=== PATIENT | female | born 1960 | race Caucasian/White ===

== ENCOUNTER 2024-10-31 18:58 | Inpatient (IN) | payer OTHER ==
[2024-10-31 20:19] LABS: Basophils # (A) 0.01 10*3/uL (0.00-0.10); Basophils % (A) 0.2 %; Eosinophils # (A) 0.02 10*3/uL (0.04-0.35); Eosinophils % (A) 0.4 %; HCT 34.2 % (37.2-46.3); HGB 12.5 g/dL (12.0-15.0); Lymphocytes # (A) 1.07 10*3/uL (0.90-5.00); Lymphocytes % (A) 20.9 %; MCH 31.0 pg (27.0-32.0); MCHC 36.5 g/dL (32.0-37.0); MCV 84.9 fL (80.0-97.0); Monocytes # (A) 0.61 10*3/uL (0.20-1.00); Monocytes % (A) 11.9 %; Neutrophils # (A) 3.39 10*3/uL (1.80-7.70); Neutrophils % (A) 66.4 %; Platelet Count 264 10*3/uL (140-440); RBC 4.03 10*6/uL (4.10-5.20); RDW 12.6 % (11.5-14.5); WBC 5.11 10*3/uL (4.50-10.00)
[2024-10-31 20:33] LABS: African American GFR (CKD) >90 (>60 ml/min/1.73 sqM); Albumin 4.8 g/dL (3.5-5.0); Anion Gap 12 mmol/L; Blood Urea Nitrogen 5 mg/dL (7-17); Calcium 9.1 mg/dL (8.4-10.2); Carbon Dioxide 20 mmol/L (22-30); Chloride 85 mmol/L (98-107); Glucose 86 mg/dL (74-99); Non-African American GFR(CKD) >90 (>60 ml/min/1.73 sqM); Total Protein 7.3 g/dL (6.3-8.2)
[2024-10-31 20:46] LABS: Potassium 3.9 mmol/L (3.5-5.1); Sodium 117 mmol/L (137-145)
[2024-10-31 20:47] LABS: ALT 37 U/L (4-34); AST 39 U/L (14-36); Alkaline Phosphatase 57 U/L (38-126)
[2024-10-31] MEDS ORDERED: NALOXONE 0.4 MG/ML 1 ML VIAL IV PRN (21:23)
--- NOTE | 2024-10-31 21:25 | ED ---
Recheck HPI - General Chief Complaint: Recheck/Abnormal Lab/Rx Stated Complaint: Low sodium Time Seen by Provider: 10/31/24 19:31 Source: patient Mode of arrival: ambulatory Limitations: no limitations - History of Present Illness Initial Comments: 64-year-old female presenting with concerns for low sodium. Patient reports that she was recently released from [facility]. She was admitted there for hyponatremia, states that she was told it was likely due to her Lasix. She reports that during her follow-up appointments throughout the week she has noticed a steadily declining sodium, yesterday her sodium was 120. She is feeling some mild weakness today but no other symptoms. She came in to get her sodium rechecked. She was sent home on ure-Na 30 mg twice daily. However she reports that her insurance does not cover this and she is unable to afford the prescribed dose so she has been taking smaller doses to stretch it out. Denies chest pain, difficulty breathing, vomiting, diarrhea, dizziness, headache. - Related Data Allergies Allergy/AdvReac Type Severity Reaction Status Date / Time No Known Allergies Allergy Verified 10/31/24 19:12 Review of Systems ROS Statement: Those systems with pertinent positive or pertinent negative responses have been documented in the HPI. ROS Other: All systems not noted in ROS Statement are negative. Past Medical History Past Medical History: Heart Failure, Hyperlipidemia, Pneumonia Additional Past Medical History / Comment(s): hyponatremia, fluid overload Past Surgical History: No Surgical Hx Reported Smoking Status: Current every day smoker Past Alcohol Use History: Daily Past Drug Use History: None Reported General Exam Limitations: no limitations General appearance: alert, in no apparent distress Head exam: Present: atraumatic, normocephalic, normal inspection Eye exam: Present: normal appearance, EOMI Neck exam: Present: normal inspection. Absent: meningismus Respiratory exam: Present: normal lung sounds bilaterally. Absent: respiratory distress, wheezes, rales, rhonchi, stridor Cardiovascular Exam: Present: regular rate, normal rhythm, normal heart sounds. Absent: systolic murmur, diastolic murmur, rubs, gallop, clicks Neurological exam: Present: alert, oriented X3 Psychiatric exam: Present: normal affect, normal mood Skin exam: Present: warm, dry, normal color Course Vital Signs 10/31/24 10/31/24 10/31/24 19:07 20:30 22:30 Temperature 98.3 F Pulse Rate 80 88 90 Respiratory 18 18 18 Rate Blood Pressure 177/73 153/70 123/57 O2 Sat by Pulse 97 99 99 Oximetry Medical Decision Making - Medical Decision Making Was pt. sent in by a medical professional or institution (YESIKA Corona, FIRE OFFICER, urgent care, hospital, or [facility]...) When possible be specific @ -No Did you speak to anyone other than the patient for history (EMS, parent, family, police, friend...)? What history was obtained from this source @ -No Did you review nursing and triage notes (agree or disagree)? Why? @ -I reviewed and agree with nursing and triage notes Were old charts reviewed (outside hosp., previous admission, EMS record, old EKG, old radiological studies, urgent care reports/EKG's, [facility] records)? Report findings @ -No old charts were reviewed Differential Diagnosis (chest pain, altered mental status, abdominal pain women, abdominal pain men, vaginal bleeding, weakness, fever, dyspnea, syncope, he adache, dizziness, GI bleed, back pain, seizure, CVA, palpatations, mental health, musculoskeletal)? @ -MDM Differential Weakness: Hypoglycemia, shock, sepsis, hyponatremia, anemia, infection, VT, ETOH, adverse medicine reaction, overdose, stroke. ... This is not meant to be an all- inclusive list EKG interpreted by me (3pts min.). @ -As above X-rays interpreted by me (1pt min.). @ -None done CT interpreted by me (1pt min.). @ -None done U/S interpreted by me (1pt. min.). @ -None done What testing was considered but not performed or refused? (CT, X-rays, U/S, labs)? Why? @ -None What meds were considered but not given or refused? Why? @ -None Did you discuss the management of the patient with other professionals (professionals i.e. YESIKA Corona, FIRE OFFICER, lab, RT, psych nurse, rn social work, multiple coil winder, teacher, transportation officer, case therapist)? Give summary @ -Spoke with Seu from [facility] who accepts admission Was smoking cessation discussed for >3mins.? @ -No Was critical care preformed (if so, how long)? @ -No Were there social determinants of health that impacted care today? How? (Homeles sness, low income, unemployed, alcoholism, drug addiction, transportation, low edu. Level, literacy, decrease access to med. care, prison, rehab)? @ -No Was there de-escalation of care discussed even if they declined (Discuss DNR or withdrawal of care, Hospice)? DNR status @ -No What co-morbidities impacted this encounter? (DM, HTN, Smoking, COPD, CAD, Cancer, CVA, ARF, Chemo, Hep., AIDS, mental health diagnosis, sleep apnea, morbid obesity)? @ -None Was patient admitted / discharged? Hospital course, mention meds given and route, prescriptions, significant lab abnormalities, going to OR and other pertinent info. @ -64-year-old female presenting with concerns for low sodium. Recently disc harged from [place] after admission for hyponatremia. At her follow-up appointment throughout the week it has been progressively lowering. She has not been able to take her medication as prescribed due to her her insurance not covering it. Mild weakness today. Sodium is 117. Vital signs stable. GFR is greater than 90 BUN 5 creatinine 0.37. Patient is given normal saline. She will be admitted. Nephrology is consulted. I discussed this case with my attending Dr. Farnsworth Undiagnosed new problem with uncertain prognosis? @ -No Drug Therapy requiring intensive monitoring for toxicity (Heparin, Nitro, Insulin, Cardizem)? @ -No Were any procedures done? @ -No Diagnosis/symptom? @ -Hyponatremia Acute, or Chronic, or Acute on Chronic? @ -Acute Uncomplicated (without systemic symptoms) or Complicated (systemic symptoms)? @ -Complicated Side effects of treatment? @ -No Exacerbation, Progression, or Severe Exacerbation? @ -No Poses a threat to life or bodily function? How? (Chest pain, USA, VT, pneumonia, PE, COPD, DKA, ARF, appy, cholecystitis, CVA, Diverticulitis, Homicidal, Suicidal, threat to staff... and all critical care pts) @ -Yes - Lab Data Result diagrams: 10/31/24 20:08 11/01/24 00:16 Lab Results 10/31/24 10/31/24 Range/Units 20:08 20:08 WBC 5.11 (4.50-10.00) 10*3/uL RBC 4.03 L (4.10-5.20) 10*6/uL Hgb 12.5 (12.0-15.0) g/dL Hct 34.2 L (37.2-46.3) % MCV 84.9 (80.0-97.0) fL MCH 31.0 (27.0-32.0) pg MCHC 36.5 (32.0-37.0) g/dL Plt Count 264 (140-440) 10*3/uL MPV 8.8 L (9.5-12.2) fL Immature Gran % (Auto) 0.2 % Neutrophils % 66.4 % Lymphocytes % 20.9 % Monocytes % 11.9 % Eosinophils % 0.4 % Basophils % 0.2 % Immature Gran # 0.01 (0.00-0.04) 10*3/uL Neutrophils # 3.39 (1.80-7.70) 10*3/uL Lymphocytes # 1.07 (0.90-5.00) 10*3/uL Monocytes # 0.61 (0.20-1.00) 10*3/uL Eosinophils # 0.02 L (0.04-0.35) 10*3/uL Basophils # 0.01 (0.00-0.10) 10*3/uL Sodium 117 L* (137-145) mmol/L Potassium 3.9 (3.5-5.1) mmol/L Chloride 85 L (98-107) mmol/L Carbon Dioxide 20 L (22-30) mmol/L Anion Gap 12 mmol/L BUN 5 L (7-17) mg/dL Creatinine 0.37 L (0.52-1.04) mg/dL Est GFR (CKD-EPI)AfAm >90 (>60 ml/min/1.73 sqM) Est GFR (CKD-EPI)NonAf >90 (>60 ml/min/1.73 sqM) Glucose 86 (74-99) mg/dL Calcium 9.1 (8.4-10.2) mg/dL Total Bilirubin 1.1 (0.2-1.3) mg/dL AST 39 H (14-36) U/L ALT 37 H (4-34) U/L Alkaline Phosphatase 57 (38-126) U/L Total Protein 7.3 (6.3-8.2) g/dL Albumin 4.8 (3.5-5.0) g/dL Disposition Clinical Impression: Hyponatremia Disposition: ADMITTED IP TO THIS HOSP Condition: Fair Time of Disposition: 21:25
[2024-10-31] MEDS: SODIUM CHLORIDE 0.9% 500 ML 500 ML IV ONE (21:28)
[2024-10-31] MEDS: SODIUM CHLORIDE 0.9% 1,000 ML IV SCH (21:29)
[2024-10-31] MEDS: LORazepam 0.5 MG TAB PO STA (22:44)
[2024-10-31] MEDS: IBUPROFEN 600 MG TAB PO STA (23:29)
[2024-11-01 07:24] LABS: ALT 29 U/L (4-34); AST 27 U/L (14-36); African American GFR (CKD) >90 (>60 ml/min/1.73 sqM); Albumin 3.7 g/dL (3.5-5.0); Alkaline Phosphatase 45 U/L (38-126); Anion Gap 7 mmol/L; Blood Urea Nitrogen 6 mg/dL (7-17); Calcium 8.3 mg/dL (8.4-10.2); Carbon Dioxide 26 mmol/L (22-30); Chloride 87 mmol/L (98-107); Glucose 106 mg/dL (74-99); Non-African American GFR(CKD) >90 (>60 ml/min/1.73 sqM); Potassium 3.1 mmol/L (3.5-5.1); Sodium 120 mmol/L (137-145); Total Protein 5.9 g/dL (6.3-8.2)
[2024-11-01] MEDS ORDERED: Potassium Replacement Protocol 1 EACH MISC MISCELLANE PRN (08:00)
[2024-11-01] MEDS: ACETAMINOPHEN TAB 500 MG TAB PO PRN (11:05)
[2024-11-01] MEDS: POTASSIUM CHLORIDE ER 20 MEQ TAB.ER PO STA (11:07)
--- NOTE | 2024-11-01 15:20 | P.NPCON ---
History of Present Illness - Reason for Consult hyponatremia - History of Present Illness Patient is a 64-year-old female with history of CHF and previous history of hyponatremia who was recently hospitalized at [facility] for hyponatremia. She was treated with urea but was not able to to take it due to no coverage through insurance, therefore she spread it out to every 2 days. Patient is also known to have a lung mass which needs to be biopsied. Patient was maintained on Lasix. She is also taking Motrin. No significant history of nausea vomiting or diarrhea. Patient denies excessive intake of fluids recently. Serum sodium was 117 on admission. Patient was started on normal saline at 50 cc an hour. Sodium improved to 120 and then decreased down to 119. No complaints of shortness of breath. Past Medical History Past Medical History: Heart Failure, Hyperlipidemia, Pneumonia Additional Past Medical History / Comment(s): hyponatremia, fluid overload Past Surgical History: No Surgical Hx Reported Smoking Status: Current every day smoker Past Alcohol Use History: Daily Past Drug Use History: None Reported Medications and Allergies Home Medications Medication Instructions Recorded Confirmed Type Fluticasone Propion/Salmeterol 2 puff INHALATION RT-BID 11/01/24 11/01/24 History [Advair Hfa 230-21 Mcg Inhaler] Folic Acid 1 mg PO DAILY 11/01/24 11/01/24 History Furosemide [Lasix] 40 mg PO BID-W/MEALS 11/01/24 11/01/24 History Ibuprofen [Motrin] 600 mg PO TID PRN 11/01/24 11/01/24 History Nicotine 21Mg/24Hr Patch [Habitrol] 1 patch TRANSDERM DAILY 11/01/24 11/01/24 History Potassium Chloride [Klor-Con M20] 20 meq PO DAILY 11/01/24 11/01/24 History Rosuvastatin [Crestor] 10 mg PO DAILY 11/01/24 11/01/24 History Thiamine [Vitamin B-1] 100 mg PO DAILY 11/01/24 11/01/24 History Ure-Na 15 gram PO Q2D 11/01/24 11/01/24 History lisinopriL [Zestril] 10 mg PO DAILY PRN 11/01/24 11/01/24 History Allergies Allergy/AdvReac Type Severity Reaction Status Date / Time No Known Allergies Allergy Verified 11/01/24 09:28 Physical Exam Vitals: Vital Signs Temp Pulse Resp BP Pulse Ox 11/01/24 15:04 98.3 F 66 18 164/80 99 11/01/24 11:11 80 16 153/78 99 11/01/24 09:12 69 18 130/63 99 11/01/24 07:34 60 18 133/75 11/01/24 06:36 75 18 133/75 99 11/01/24 03:19 60 16 138/81 98 10/31/24 22:30 90 18 123/57 99 10/31/24 20:30 88 18 153/70 99 10/31/24 19:07 98.3 F 80 18 177/73 97 Patient is awake, comfortable, no acute distress Examination of the heart S1 and S2 Examination of the lungs bilateral breath sounds are heard decreased breath sounds at the bases Abdomen is soft obese nontender Examination of lower extremities shows no significant edema, chronic skin changes TREE SURGEON exam grossly intact Results - Lab Results Most recent lab results Calcium 8.3 mg/dL (8.4-10.2) L 11/01/24 06:39 10/31/24 20:08 11/01/24 11:01 Assessment and Plan Assessment: 1. Hyponatremia, currently euvolemic. Serum sodium improved slightly with saline however it has worsened now. Saline will be discontinued. Possible underlying SIADH. Patient has a lung mass which needs to be biopsied. 2. History of CHF, ejection fraction not known 3. Morbid obesity 4. Hypertension maintained on JAYDON inhibitors Plan: DC saline Resume urea 15 g twice a day Fluid restriction Patient is encouraged to increase oral intake particularly protein. Repeat sodium in 4 hours IV Lasix x 1 Pulmonology considering biopsy of lung mass, details not available at this time. Thank you for the consultation. We will continue to follow the patient with you during her hospitalization.
--- NOTE | 2024-11-01 15:46 | P.HPIM ---
History of Present Illness H&P Date: 11/01/24 Chief Complaint: Weakness and hyponatremia History of present illness; 64-year-old female with a past medical history of CHF, COPD not on home oxygen, and hyperlipidemia presents with complaints of w eakness. Of note patient reports she was recently released from [facility] where she was admitted for hyponatremia which at that time was believed to be secondary to her Lasix use. Reports she was sent to the ER by Dr. Williamson due to the low sodium that he had after drawing labs in his office, and also wanted the patient to get a CT scan of the chest done and biopsy of a lung mass that he had found on previous investigation. States during her follow-up appointments after discharge her sodium continued to decline on further lab work testing in the outpatient setting and yesterday had a reading of 120 for her sodium. Reports she has had some mild weakness in the last day but denies any other symptoms. Reports she decided come to the ER for further evaluation and have her sodium checked. States she was sent home on urea sodium 30 mg twice daily however her insurance did not cover this medication and was taking smaller doses to try to stretch out the medication. Labs: Sodium 117, potassium 3.9, bicarb 20, BUN 5, creatinine 0.37, AST 39, ALT 37, and glucose 86 Imaging: - ER CXR: Right perihilar and left lower lobe infiltrates REVIEW OF SYSTEMS: As stated above in HPI. The rest of the 14-point review of systems is negative. PHYSICAL EXAMINATION: GENERAL: The patient is alert and oriented x3, not in any acute distress. Well developed, well nourished. HEENT: Pupils are round and equally reacting to light. EOMI. No scleral icterus. No conjunctival pallor. Normocephalic, atraumatic. CARDIOVASCULAR: S1 and S2 present. No murmurs, rubs, or gallops. PULMONARY: Chest is clear to auscultation b/l, no wheezing or crackles. ABDOMEN: Soft, nontender, nondistended, normoactive bowel sounds. No palpable organomegaly. MUSCULOSKELETAL: No joint swelling or deformity. EXTREMITIES: No cyanosis, clubbing, or pedal edema. NEUROLOGICAL: Gross neurological examination did not reveal any focal deficits. SKIN: No rashes. Assessment and Plan #Hyponatremia: - Initially presented with a sodium of 117, 8 hours later sodium is 120 - Monitor BMP, sodium should only increase by 8 to 10 mmol/L in the next 24 hours and should not exceed 18 mmol/L in 48 hours - Nephrology on consult, appreciate further recommendations - Fluid restrict - Urea 15 g p.o. twice daily - Sodium every 4 hours - Ordered urine sodium and osmolality #Hypokalemia: - Potassium on presentation 3.9, currently 3.1 - Ordered potassium chloride ER 40 mill equivalents p.o. once - Monitor BMP - Nephrology consulted for electrolyte abnormalities, appreciate further recommendations #Perihilar and left lower lobe infiltrates on chest x-ray: - Patient denies cough, recent sick contacts, does not have a white count, and has not had a temperature since being here - Ordered procalcitonin - Patient who follows with Dr. Bradshaw for lung mass, he wanted the patient to get a biopsy done here but he is out of town and Dr. Teixeira states he would not likely do the biopsy over the weekend and to follow-up in the office. Dr. Bradshaw also wants patient to get CT chest done here, we can order that for Monday or Monday. Chronic Conditions: #Benign essential hypertension: - Continue home medications #COPD: - Continue home Symbicort F: Fluid restrict E: None N: Heart healthy diet A: As tolerated DVT ppx: SCDs GI ppx: None CODE STATUS: Full code Dispo: Pending clinical course Jacki Mike MD PGY-2 FM Dictation was produced using [employer] dictation software. please excuse any gram matical, word or spelling errors. Past Medical History Past Medical History: Heart Failure, Hyperlipidemia, Pneumonia Additional Past Medical History / Comment(s): hyponatremia, fluid overload Past Surgical History: No Surgical Hx Reported Smoking Status: Current every day smoker Past Alcohol Use History: Daily Past Drug Use History: None Reported Medications and Allergies Home Medications Medication Instructions Recorded Confirmed Type Fluticasone Propion/Salmeterol 2 puff INHALATION RT-BID 11/01/24 11/01/24 History [Advair Hfa 230-21 Mcg Inhaler] Folic Acid 1 mg PO DAILY 11/01/24 11/01/24 History Ibuprofen [Motrin] 600 mg PO TID PRN 11/01/24 11/01/24 History Nicotine 21Mg/24Hr Patch [Habitrol] 1 patch TRANSDERM DAILY 11/01/24 11/01/24 History Potassium Chloride [Klor-Con M20] 20 meq PO DAILY 11/01/24 11/01/24 History Rosuvastatin [Crestor] 10 mg PO DAILY 11/01/24 11/01/24 History Thiamine [Vitamin B-1] 100 mg PO DAILY 11/01/24 11/01/24 History Ure-Na 15 gram PO Q2D 11/01/24 11/01/24 History lisinopriL [Zestril] 10 mg PO DAILY PRN 11/01/24 11/01/24 History Demeclocycline [Declomycin] 300 mg PO BID #60 tab 11/06/24 Rx Furosemide [Lasix] 40 mg PO DAILY #30 11/06/24 11/01/24 Rx Allergies Allergy/AdvReac Type Severity Reaction Status Date / Time No Known Allergies Allergy Verified 11/01/24 09:28 Physical Exam Vitals: Vital Signs Temp Pulse Resp BP Pulse Ox 11/01/24 06:36 75 18 133/75 99 11/01/24 03:19 60 16 138/81 98 10/31/24 22:30 90 18 123/57 99 10/31/24 20:30 88 18 153/70 99 10/31/24 19:07 98.3 F 80 18 177/73 97 Intake and Output 10/31/24 11/01/24 11/01/24 22:59 06:59 14:59 Other: Weight 64.41 kg Results CBC & Chem 7: 11/04/24 07:42 11/06/24 06:00 Labs: Abnormal Lab Results - Last 24 Hours (Table) 10/31/24 10/31/24 11/01/24 Range/Units 20:08 20:08 00:16 RBC 4.03 L (4.10-5.20) 10*6/uL Hct 34.2 L (37.2-46.3) % MPV 8.8 L (9.5-12.2) fL Eosinophils # 0.02 L (0.04-0.35) 10*3/uL Sodium 117 L* 118 L* (137-145) mmol/L Potassium (3.5-5.1) mmol/L Chloride 85 L (98-107) mmol/L Carbon Dioxide 20 L (22-30) mmol/L BUN 5 L (7-17) mg/dL Creatinine 0.37 L (0.52-1.04) mg/dL Glucose (74-99) mg/dL Calcium (8.4-10.2) mg/dL AST 39 H (14-36) U/L ALT 37 H (4-34) U/L Total Protein (6.3-8.2) g/dL 11/01/ Range/Units 06:39 RBC (4.10-5.20) 10*6/uL Hct (37.2-46.3) % MPV (9.5-12.2) fL Eosinophils # (0.04-0.35) 10*3/uL Sodium 120 L (137-145) mmol/L Potassium 3.1 L (3.5-5.1) mmol/L Chloride 87 L (98-107) mmol/L Carbon Dioxide (22-30) mmol/L BUN 6 L (7-17) mg/dL Creatinine 0.44 L (0.52-1.04) mg/dL Glucose 106 H (74-99) mg/dL Calcium 8.3 L (8.4-10.2) mg/dL AST (14-36) U/L ALT (4-34) U/L Total Protein 5.9 L (6.3-8.2) g/dL Thrombosis Risk Factor Assmnt - DVT/VTE Prophylaxis DVT/VTE Prophylaxis: Pharmacologic Prophylaxis ordered Assessment and Plan Assessment: Attestation Attestation/ Whiting Machine Operator Note: Attestation to History and physical, Participation (I saw and evaluated the patient with the Resident, and I reviewed and discussed the patient with the Resident and agree with the Resident's findings and plans as documented above., management reviewed and discussed), I agree with findings & plan, Provider Signature (INDIO HESTER, RAYMOND Robison Time with Patient: Greater than 30
[2024-11-01] MEDS ORDERED: IBUPROFEN 600 MG TAB PO SCH (16:00)
[2024-11-01] MEDS: FUROSEMIDE 10 MG/ML 2 ML VIAL IV ONE (16:02)
[2024-11-01] MEDS: NICOTINE 21MG/24HR PATCH TRANSDERM SCH (16:04)
[2024-11-01] MEDS: UREA 15 GM POWD.PACK PO SCH (21:22)
[2024-11-01] MEDS: IBUPROFEN 400 MG TAB PO PRN (22:06)
[2024-11-01] MEDS: PANTOPRAZOLE 40 MG TABLET PO SCH (22:06)
[2024-11-01] MEDS: SYMBICORT 160-4.5 MCG INHALER INHALATION SCH (23:35)
[2024-11-02 03:45] LABS: Basophils # (A) 0.01 10*3/uL (0.00-0.10); Basophils % (A) 0.3 %; Eosinophils # (A) 0.03 10*3/uL (0.04-0.35); Eosinophils % (A) 0.8 %; HCT 31.2 % (37.2-46.3); HGB 11.0 g/dL (12.0-15.0); Lymphocytes # (A) 1.25 10*3/uL (0.90-5.00); Lymphocytes % (A) 32.5 %; MCH 30.6 pg (27.0-32.0); MCHC 35.3 g/dL (32.0-37.0); MCV 86.7 fL (80.0-97.0); Monocytes # (A) 0.60 10*3/uL (0.20-1.00); Monocytes % (A) 15.6 %; Neutrophils # (A) 1.96 10*3/uL (1.80-7.70); Neutrophils % (A) 50.8 %; Platelet Count 252 10*3/uL (140-440); RBC 3.60 10*6/uL (4.10-5.20); RDW 12.7 % (11.5-14.5); WBC 3.85 10*3/uL (4.50-10.00)
[2024-11-02 04:28] LABS: African American GFR (CKD) >90 (>60 ml/min/1.73 sqM); Anion Gap 6 mmol/L; Blood Urea Nitrogen 18 mg/dL (7-17); Calcium 8.6 mg/dL (8.4-10.2); Carbon Dioxide 24 mmol/L (22-30); Chloride 92 mmol/L (98-107); Glucose 96 mg/dL (74-99); Non-African American GFR(CKD) >90 (>60 ml/min/1.73 sqM); Potassium 3.9 mmol/L (3.5-5.1); Sodium 122 mmol/L (137-145)
[2024-11-02] MEDS: ATORVASTATIN 20 MG TAB PO SCH (08:37)
[2024-11-02] MEDS: FOLIC ACID 1 MG TAB PO SCH (08:38)
[2024-11-02] MEDS: THIAMINE 100 MG TAB PO SCH (08:38)
[2024-11-02] MEDS ORDERED: UREA 15 GM POWD.PACK PO SCH (09:00)
[2024-11-02] MEDS ORDERED: NICOTINE 21MG/24HR PATCH TRANSDERM SCH (09:00)
[2024-11-02] MEDS ORDERED: RX INFO: IV CONTRAST WAS GIVEN 1 EACH MISC MISCELLANE PRN (10:15)
[2024-11-02] MEDS: SODIUM CHLORIDE 0.9% 1,000 ML IV SCH (10:28)
--- NOTE | 2024-11-02 10:53 | P.PN ---
Subjective Progress Note Date: 11/02/24 following for hyponatremia patient is feeling fine, she has been feeling tired, no other complaints, sodium level stable ~122-123 on going work up for lung mass evaluation. Objective - Vital Signs Vital signs: Vital Signs Temp 97.4 F L 11/02/24 08:08 Pulse 72 11/02/24 08:08 Resp 18 11/02/24 08:08 BP 139/85 11/02/24 08:08 Pulse Ox 99 11/02/24 08:08 FiO2 Intake & Output 11/01/24 11/02/24 11/02/24 18:59 06:59 18:59 Intake Total 240 460 250 Output Total 0 Balance 240 460 250 Weight 64.41 kg 112.9 kg Intake: IV 20 10 Invasive Line 1 20 10 Oral 240 440 240 Output: Urine 0 Other: Voiding Method Toilet # Voids 0 # Bowel Movements 0 - Exam Patient is awake, comfortable, no acute distress Examination of the heart S1 and S2 Examination of the lungs bilateral breath sounds are heard decreased breath sounds at the bases Abdomen is soft obese nontender Examination of lower extremities shows no significant edema, chronic skin changes SYSTEM ANALYST exam grossly intact - Labs CBC & Chem 7: 11/02/24 03:16 11/02/24 03:16 Labs: Abnormal Lab Results - Last 24 Hours (Table) 11/01/24 11/01/24 11/01/24 Range/Units 11:01 14:53 19:47 WBC (4.50-10.00) 10*3/uL RBC (4.10-5.20) 10*6/uL Hgb (12.0-15.0) g/dL Hct (37.2-46.3) % MPV (9.5-12.2) fL Eosinophils # (0.04-0.35) 10*3/uL Sodium 119 L* 120 L 123 L (137-145) mmol/L Chloride (98-107) mmol/L BUN (7-17) mg/dL Creatinine (0.52-1.04) mg/dL 11/01/24 11/02/24 11/02/24 Range/Units 23:31 03:16 03:16 WBC 3.85 L (4.50-10.00) 10*3/uL RBC 3.60 L (4.10-5.20) 10*6/uL Hgb 11.0 L (12.0-15.0) g/dL Hct 31.2 L (37.2-46.3) % MPV 9.2 L (9.5-12.2) fL Eosinophils # 0.03 L (0.04-0.35) 10*3/uL Sodium 123 L 122 L (137-145) mmol/L Chloride 92 L (98-107) mmol/L BUN 18 H (7-17) mg/dL Creatinine 0.43 L (0.52-1.04) mg/dL Assessment and Plan Assessment: 1. Hyponatremia, currently euvolemic. Serum sodium improved slightly with saline however it has worsened now. Saline will be discontinued. Possible underlying SIADH. Patient has a lung mass which needs to be biopsied. 2. History of CHF, ejection fraction not known 3. Morbid obesity 4. Hypertension maintained on JAYDON inhibitors Plan: increase urea to 30 g twice a day Fluid restriction Patient is encouraged to increase oral intake particularly protein. Repeat sodium in 4 hours IV Lasix x 1 Pulmonology considering biopsy of lung mass.
--- NOTE | 2024-11-02 11:15 | CT ---
EXAMINATION TYPE: CT chest w con DATE OF EXAM: 11/02/2024 11:00 AM COMPARISON: None. CLINICAL INDICATION: Female, 64 years old with history of hx of pulmonary mass, History of pulmonary mass, TECHNIQUE: CT scan of the chest is performed with IV Contrast, patient injected with 100 ml mL of Iso ryan 300. CT DLP: 586.8 mGycm, Automated exposure control for dose reduction was used. FINDINGS: LUNGS: There is right-sided infrahilar soft tissue mass measuring 3.8 x 4.7 x 3.8 cm with postobstruc tive volume loss. No additional lung nodules or masses seen. Right hilar lymph node noted measuring 1 .6 cm. The findings are felt to reflect malignancy until proven otherwise. Recommend PET/CT and/or ti ssue diagnosis. MEDIASTINUM: There are no greater than 1 cm hilar or mediastinal lymph nodes. No pericardial effusi on is seen. Thoracic aorta is of normal caliber. HEART: Size within normal limits. No significant coronary artery calcifications. UPPER ABDOMEN: No significant abnormality appreciated. OTHER: No additional significant abnormality is seen. IMPRESSION: There is right-sided infrahilar soft tissue mass measuring 3.8 x 4.7 x 3.8 cm with postobstructive v olume loss. No additional lung nodules or masses seen. Right hilar lymph node noted measuring 1.6 cm. The findings are felt to reflect malignancy until proven otherwise. Recommend PET/CT and/or tissue d iagnosis. [facility], , 11/02/2024 11:13 AM
--- NOTE | 2024-11-02 12:40 | P.PN ---
Subjective Progress Note Date: 11/02/24 Chief Complaint: Weakness and hyponatremia History of present illness; 64-year-old female with a past medical history of CHF, COPD not on home oxygen, and hyperlipidemia presents with complaints of weakness. Of note patient reports she was recently released from [facility] where she was admitted for hyponatremia which at that time was believed to be secondary to her Lasix use. Reports she was sent to the ER by Dr. Williamson due to the low sodium that he had after drawing labs in his office, and also wanted the patient to get a CT scan of the chest done and biopsy of a lung mass that he had found on previous investigation. States during her follow-up appointments after discharge her sodium continued to decline on further lab work testing in the outpatient setting and yesterday had a reading of 120 for her sodium. Reports she has had some mild weakness in the last day but denies any other symptoms. Reports she decided come to the ER for further evaluation and have her sodium checked. States she was sent home on urea sodium 30 mg twice daily however her insurance did not cover this medication and was taking smaller doses to try to stretch out the medication. Subjective: 11/02/2024: Patient seen at bedside. No significant overnight events. Patient is disgruntled that she was had to be woken up several times for blood draws and was unable to get good rest and is frustrated that her sodium is not increasing faster. Otherwise no complaints at this time. Pertinent positives and negatives discussed above, a complete review of systems was preformed and all the other sytems were negative. Vitals Signs Reveiwed. GENERAL: The patient is alert and oriented x3, not in any acute distress. Well developed, well nourished. HEENT: Pupils are round and equally reacting to light. EOMI. No scleral icterus. No conjunctival pallor. Normocephalic, atraumatic. CARDIOVASCULAR: S1 and S2 present. No murmurs, rubs, or gallops. PULMONARY: Chest is clear to auscultation b/l, no wheezing or crackles. ABDOMEN: Soft, nontender, nondistended, normoactive bowel sounds. No palpable organomegaly. MUSCULOSKELETAL: No joint swelling or deformity. EXTREMITIES: No cyanosis, clubbing, trace edema bilaterally NEUROLOGICAL: Gross neurological examination did not reveal any focal deficits. SKIN: No rashes. Data Reveiwed Today: Patient Labs: WBC 3.5, hemoglobin 11, platelets 252, sodium 122, potassium 3.9, BUN 18, and creatinine 0.43. Imaging: CT chest with contrast shows right-sided infrahilar lytic soft tissue mass measuring 3.8 x 4.7 x 3.8 cm Assesment and Plan: #Hyponatremia: Euvolemic, potentially SIADH in the setting of potential malignancy secondary to lung mass. Versus reset osmostat versus secondary adrenal insufficiency - Initially presented with a sodium of 117, 8 hours later sodium is 120 - Monitor BMP, sodium should only increase by 8 to 10 mmol/L in the next 24 hours and should not exceed 18 mmol/L in 48 hours - Nephrology on consult, appreciate further recommendations - Fluid restrict to 1.5 liters, patient will be getting NS 50 cc/h for approximately 6 hours today in preparation for CT chest with contrast fluid to be discontinued after that and go back to fluid restriction of 1.5 L - Urea 30 g p.o. twice daily -Sodium to be checked at 6 PM today, and follow-up in the a.m. routine -Urine sodium and osmolality within normal limits - Ordered serum osmolality #Hypokalemia: Improved - Potassium 3.9 - Continue to replete as needed - Monitor BMP - Nephrology consulted for electrolyte abnormalities, appreciate further recommendations #Right-sided infrahilar soft tissue mass measuring 3.8 x 4.7 x 3.8 cm - Patient denies cough, recent sick contacts, does not have a white count, and has not had a temperature since being here -Procalcitonin within normal limits -Pulmonology consulted, appreciate further recommendations - Continue breathing treatment Chronic Conditions: #Benign essential hypertension: - Continue home medications #COPD: - Continue home Symbicort #CHF with unknown systolic or diastolic dysfunction - Currently holding home Lasix in the setting of hyponatremia F: Fluid restrict to 1.5 L E: None N: Heart healthy diet A: As tolerated DVT ppx: SCDs GI ppx: None CODE STATUS: Full code Dispo: Pending clinical course Jacki Mike MD PGY-[address]: To home Anticipated discharge time: Pending clinical course Objective - Vital Signs Vital signs: Vital Signs Temp 98.2 F 11/01/24 20:00 Pulse 58 L 11/02/24 04:58 Resp 18 11/02/24 04:58 BP 153/90 11/02/24 04:58 Pulse Ox 96 11/02/24 04:58 FiO2 Intake & Output 11/01/24 11/02/24 11/02/24 18:59 06:59 18:59 Intake Total 240 460 Output Total 0 Balance 240 460 Weight 64.41 kg 112.9 kg Intake: IV 20 Invasive Line 1 20 Oral 240 440 Output: Urine 0 Other: Voiding Method Toilet # Voids 0 # Bowel Movements 0 - Labs CBC & Chem 7: 11/04/24 07:42 11/06/24 06:00 Labs: Abnormal Lab Results - Last 24 Hours (Table) 11/01/24 11/01/24 11/01/24 Range/Units 06:39 11:01 14:53 WBC (4.50-10.00) 10*3/uL RBC (4.10-5.20) 10*6/uL Hgb (12.0-15.0) g/dL Hct (37.2-46.3) % MPV (9.5-12.2) fL Eosinophils # (0.04-0.35) 10*3/uL Sodium 120 L 119 L* 120 L (137-145) mmol/L Potassium 3.1 L (3.5-5.1) mmol/L Chloride 87 L (98-107) mmol/L BUN 6 L (7-17) mg/dL Creatinine 0.44 L (0.52-1.04) mg/dL Glucose 106 H (74-99) mg/dL Calcium 8.3 L (8.4-10.2) mg/dL Total Protein 5.9 L (6.3-8.2) g/dL 11/01/24 11/01/24 11/02/24 Range/Units 19:47 23:31 03:16 WBC 3.85 L (4.50-10.00) 10*3/uL RBC 3.60 L (4.10-5.20) 10*6/uL Hgb 11.0 L (12.0-15.0) g/dL Hct 31.2 L (37.2-46.3) % MPV 9.2 L (9.5-12.2) fL Eosinophils # 0.03 L (0.04-0.35) 10*3/uL Sodium 123 L 123 L (137-145) mmol/L Potassium (3.5-5.1) mmol/L Chloride (98-107) mmol/L BUN (7-17) mg/dL Creatinine (0.52-1.04) mg/dL Glucose (74-99) mg/dL Calcium (8.4-10.2) mg/dL Total Protein (6.3-8.2) g/dL // Range/Units 03:16 WBC (4.50-10.00) 10*3/uL RBC (4.10-5.20) 10*6/uL Hgb (12.0-15.0) g/dL Hct (37.2-46.3) % MPV (9.5-12.2) fL Eosinophils # (0.04-0.35) 10*3/uL Sodium 122 L (137-145) mmol/L Potassium (3.5-5.1) mmol/L Chloride 92 L (98-107) mmol/L BUN 18 H (7-17) mg/dL Creatinine 0.43 L (0.52-1.04) mg/dL Glucose (74-99) mg/dL Calcium (8.4-10.2) mg/dL Total Protein (6.3-8.2) g/dL Assessment and Plan Assessment: Attestation Attestation/ [employer] Supervisor Note: Attestation to Progress Note, Participation (I saw and evaluated the patient with the Resident, and I reviewed and discussed the patient with the Resident and agree with the Resident's findings and plans as documented above., management reviewed and discussed), I agree with findings & plan, Provider Signature (INDIO HESTER, RAYMOND Robison Time with Patient: Greater than 30
[2024-11-02] MEDS: guaiFENesin SYRUP 100MG/5ML 200 MG/10 ML CUP PO PRN (13:06)
[2024-11-02] MEDS: UREA 15 GM POWD.PACK PO SCH (20:35)
[2024-11-03 07:07] LABS: Basophils # (A) 0.01 10*3/uL (0.00-0.10); Basophils % (A) 0.2 %; Eosinophils # (A) 0.06 10*3/uL (0.04-0.35); Eosinophils % (A) 1.4 %; HCT 30.7 % (37.2-46.3); HGB 10.8 g/dL (12.0-15.0); Lymphocytes # (A) 1.27 10*3/uL (0.90-5.00); Lymphocytes % (A) 29.6 %; MCH 30.8 pg (27.0-32.0); MCHC 35.2 g/dL (32.0-37.0); MCV 87.5 fL (80.0-97.0); Monocytes # (A) 0.51 10*3/uL (0.20-1.00); Monocytes % (A) 11.9 %; Neutrophils # (A) 2.44 10*3/uL (1.80-7.70); Neutrophils % (A) 56.9 %; Platelet Count 250 10*3/uL (140-440); RBC 3.51 10*6/uL (4.10-5.20); RDW 12.8 % (11.5-14.5); WBC 4.29 10*3/uL (4.50-10.00)
[2024-11-03 07:24] LABS: African American GFR (CKD) >90 (>60 ml/min/1.73 sqM); Anion Gap 6 mmol/L; Blood Urea Nitrogen 20 mg/dL (7-17); Calcium 8.6 mg/dL (8.4-10.2); Carbon Dioxide 25 mmol/L (22-30); Chloride 92 mmol/L (98-107); Glucose 94 mg/dL (74-99); Non-African American GFR(CKD) >90 (>60 ml/min/1.73 sqM); Potassium 3.9 mmol/L (3.5-5.1); Sodium 123 mmol/L (137-145)
--- NOTE | 2024-11-03 10:15 | P.PN ---
Subjective Progress Note Date: 11/03/24 following for hyponatremia patient seen today, she has been feeling tired , + hemoptysis , sodium level at 123 this morning on going work up for lung mass evaluation. Objective - Vital Signs Vital signs: Vital Signs Temp 97.8 F 11/03/24 08:59 Pulse 63 11/03/24 08:59 Resp 16 11/03/24 08:59 BP 156/73 11/03/24 08:59 Pulse Ox 100 11/03/24 08:59 FiO2 Intake & Output 11/02/24 11/03/24 11/03/24 18:59 06:59 18:59 Intake Total 1100 250 250 Balance 1100 250 250 Intake: IV 20 10 10 Invasive Line 1 20 10 10 Oral 1080 240 240 Other: Voiding Method Toilet Toilet # Voids 1 - Exam Patient is awake, comfortable, no acute distress Examination of the heart S1 and S2 Examination of the lungs bilateral breath sounds are heard decreased breath sounds at the bases Abdomen is soft obese nontender Examination of lower extremities shows no significant edema, chronic skin changes PENS AND PENCILS DIPPER exam grossly intact - Labs CBC & Chem 7: 11/03/24 06:23 11/03/24 06:23 Labs: Abnormal Lab Results - Last 24 Hours (Table) 11/02/24 11/03/24 11/03/24 Range/Units 17:30 06:23 06:23 WBC 4.29 L (4.50-10.00) 10*3/uL RBC 3.51 L (4.10-5.20) 10*6/uL Hgb 10.8 L (12.0-15.0) g/dL Hct 30.7 L (37.2-46.3) % MPV 9.2 L (9.5-12.2) fL Sodium 122 L 123 L (137-145) mmol/L Chloride 92 L (98-107) mmol/L BUN 20 H (7-17) mg/dL Creatinine 0.39 L (0.52-1.04) mg/dL Assessment and Plan Assessment: 1. Hyponatremia, currently euvolemic. Serum sodium improved slightly with saline however it has worsened now. Saline will be discontinued. Possible underlying SIADH. Patient has a lung mass which needs to be biopsied. 2. History of CHF, ejection fraction not known 3. Morbid obesity 4. Hypertension maintained on JAYDON inhibitors Plan: continue urea 30 g twice a day start salt tab 1 g BID Fluid restriction Patient is encouraged to increase protein oral intake check sodium level q 8-12 hours IV Lasix x 1 Pulmonology considering biopsy of lung mass.
[2024-11-03] MEDS: SODIUM CHLORIDE TAB 1 GM TAB PO SCH (11:36)
--- NOTE | 2024-11-03 12:00 | P.CNPUL ---
History of Present Illness Consult date: 11/03/24 Requesting physician: Jacki Mike Reason for consult: abnormal CXR/CT Chief complaint: Low sodium levels History of present illness: This is a 64-year-old female patient with a known history of congestive heart failure, hyperlipidemia, chronic obstructive pulmonary disease with chronic and ongoing tobacco dependence of 50 years, daily alcohol use. She also has a recent history of a right sided infrahilar soft tissue mass measuring 3.8 x 4.7 x 3.8 cm with postobstructive volume loss. Right hilar lymph node measuring 1.6 cm. She was following with Dr. Bradshaw in this regard and planning for a biopsy and a PET scan in the outpatient setting. She was recently in [facility] for 1 week for hyponatremia, as low as 104 according to the patient. She was discharged home on Urea but was not taking the recommended dosing due to cost. She presented here to the emergency room 10/31/2024 for follow-up blood work and her sodium was 117. She is seen today consult Tatian regarding the lung mass. She is currently sitting up at the bedside. Awake and alert in no acute distress. Maintaining O2 saturations up to 100% on room air oxygen. She is afebrile. Hemodynamically stable. Denies any shortness of breath, cough or congestion. No hemoptysis. White count 4.2. Hemoglobin 10.8. Platelets 250. Sodium 123. Potassium 3.9. Bicarb 25. BUN 20. Creatinine 0.39. Glucose 94. Urine osmolality 319. Urine random sodium 76. Procalcitonin negative at 0.10. She is receiving sodium chloride tablets 1 g twice daily and urea 30 g twice daily. Review of Systems REVIEW OF SYSTEMS: CONSTITUTIONAL: Denies any recent significant weight loss or weight gain. EYES: Denies change in vision. EARS, NOSE, MOUTH, THROAT: Denies headaches, denies sore throat. CARDIOVASCULAR: Denies chest pain, palpitations or syncopal episodes. RESPIRATORY: Denies shortness of breath, cough, congestion or hemoptysis. GASTROINTESTINAL: Denies change in appetite, denies abdominal pain GENITOURINARY: Denies hematuria, denies infections. MUSKULOSKELETAL: Denies pain, denies swelling. INTEGUMENTARY: Denies rash, denies eczema. NEUROLOGICAL: Denies recent memory loss, no recent seizure activity. PSYCHIATRIC: Denies anxiety, denies depression. HEMATOLOGIC/LYMPHATIC: Denies anemia, denies enlarged lymph nodes. Past Medical History Past Medical History: Heart Failure, Hyperlipidemia, Pneumonia Additional Past Medical History / Comment(s): hyponatremia, fluid overload History of Any Multi-Drug Resistant Organisms: None Reported Past Surgical History: No Surgical Hx Reported Past Anesthesia/Blood Transfusion Reactions: No Reported Reaction Smoking Status: Current every day smoker Past Alcohol Use History: Daily Past Drug Use History: None Reported Medications and Allergies Home Medications Medication Instructions Recorded Confirmed Type Fluticasone Propion/Salmeterol 2 puff INHALATION RT-BID 11/01/24 11/01/24 History [Advair Hfa 230-21 Mcg Inhaler] Folic Acid 1 mg PO DAILY 11/01/24 11/01/24 History Furosemide [Lasix] 40 mg PO BID-W/MEALS 11/01/24 11/01/24 History Ibuprofen [Motrin] 600 mg PO TID PRN 11/01/24 11/01/24 History Nicotine 21Mg/24Hr Patch [Habitrol] 1 patch TRANSDERM DAILY 11/01/24 11/01/24 History Potassium Chloride [Klor-Con M20] 20 meq PO DAILY 11/01/24 11/01/24 History Rosuvastatin [Crestor] 10 mg PO DAILY 11/01/24 11/01/24 History Thiamine [Vitamin B-1] 100 mg PO DAILY 11/01/24 11/01/24 History Ure-Na 15 gram PO Q2D 11/01/24 11/01/24 History lisinopriL [Zestril] 10 mg PO DAILY PRN 11/01/24 11/01/24 History Allergies Allergy/AdvReac Type Severity Reaction Status Date / Time No Known Allergies Allergy Verified 11/01/24 09:28 Physical Exam Vitals: Vital Signs Temp Pulse Resp BP Pulse Ox 11/03/24 08:59 97.8 F 63 16 156/73 100 11/03/24 02:00 97.4 F L 66 16 150/72 96 11/02/24 20:00 98.4 F 71 18 169/80 97 11/02/24 14:57 98.4 F 61 18 153/84 99 11/02/24 12:48 68 18 Intake and Output 11/02/24 11/03/24 11/03/24 22:59 06:59 14:59 Intake Total 610 240 250 Balance 610 240 250 Intake: IV 10 10 Invasive Line 1 10 10 Oral 600 240 240 Other: Voiding Method Toilet Toilet # Voids 1 GENERAL EXAM: Alert, active, obese 64-year-old female on room air, comfortable in no apparent distress. HEAD: Normocephalic. EYES: Normal reaction of pupils, equal size. NOSE: Clear with pink turbinates. THROAT: No erythema or exudates. NECK: No masses, no JVD. CHEST: No chest wall deformity. LUNGS: Equal air entry with no crackles, wheeze, rhonchi or dullness. CVS: S1 and S2 normal with no audible murmur, regular rhythm. ABDOMEN: No hepatosplenomegaly, normal bowel sounds, no guarding or rigidity. SPINE: No scoliosis or deformity SKIN: No rashes CENTRAL NERVOUS SYSTEM: No focal deficits, tone is normal in all 4 extremities. EXTREMITIES: There is no peripheral edema. No clubbing, no cyanosis. Peripheral pulses are intact. Results - Laboratory Findings CBC and BMP: 11/03/24 06:23 11/03/24 06:23 Abnormal lab findings: Abnormal Labs 10/31/24 10/31/24 11/01/24 20:08 20:08 00:16 WBC RBC 4.03 L Hgb Hct 34.2 L MPV 8.8 L Eosinophils # 0.02 L Sodium 117 L* 118 L* Potassium Chloride 85 L Carbon Dioxide 20 L BUN 5 L Creatinine 0.37 L Glucose Osmolality Calcium AST 39 H ALT 37 H Total Protein 11/01/24 11/01/24 11/01/24 06:39 11:01 14:53 WBC RBC Hgb Hct MPV Eosinophils # Sodium 120 L 119 L* 120 L Potassium 3.1 L Chloride 87 L Carbon Dioxide BUN 6 L Creatinine 0.44 L Glucose 106 H Osmolality Calcium 8.3 L AST ALT Total Protein 5.9 L 11/01/24 11/01/24 11/02/24 19:47 23:31 03:16 WBC 3.85 L RBC 3.60 L Hgb 11.0 L Hct 31.2 L MPV 9.2 L Eosinophils # 0.03 L Sodium 123 L 123 L Potassium Chloride Carbon Dioxide BUN Creatinine Glucose Osmolality Calcium AST ALT Total Protein 11/02/24 11/02/2425 03:16 17:30 06:23 WBC RBC Hgb Hct MPV Eosinophils # Sodium 122 L 122 L 123 L Potassium Chloride 92 L 92 L Carbon Dioxide BUN 18 H 20 H Creatinine 0.43 L 0.39 L Glucose Osmolality 259 L Calcium AST ALT Total Protein 11/03/24 06:23 WBC 4.29 L RBC 3.51 L Hgb 10.8 L Hct 30.7 L MPV 9.2 L Eosinophils # Sodium Potassium Chloride Carbon Dioxide BUN Creatinine Glucose Osmolality Calcium AST ALT Total Protein - Diagnostic Findings CT scan - chest: image reviewed Assessment and Plan Assessment: Hyponatremia, possible underlying SIADH, improving Recent admission for hyponatremia at [facility] x 1 week, was not taking Urea as ordered due to cost, home for 1 week prior to coming here Right sided infrahilar soft tissue mass measuring 3.8 x 4.7 x 3.8 cm with postobstructive volume loss. Right hilar lymph node noted measuring 1.6 cm Chronic and ongoing tobacco dependence of 50 years Neck obstructive pulmonary disease History of congestive heart failure Daily alcohol use Hypertension Morbid obesity Obstructive sleep apnea maintained on CPAP Plan: The patient was seen and evaluated CT scan, labs and medications reviewed Current sodium 123 Remains on Urea and sodium chloride tablets Remains on 1500 mL fluid restriction Nephrology is following Continue Symbicort Educated regarding complete smoking cessation NicoDerm patch in place Home medications resumed Recommend outpatient PET scan Recommend outpatient lung biopsy Would need to have sodium greater than 128 for anesthesia We will continue to follow and make further recommendations based on her clinical status I have personally seen and examined the patient, performed the documentation and the assessment and plan as written. Number of minutes spent on the visit: 20 Dictation was produced using [employer] dictation software. Please excuse any grammatical, word or spelling errors.
--- NOTE | 2024-11-03 23:58 | P.PN ---
Subjective Progress Note Date: 11/03/24 History of present illness; 64-year-old female with a past medical history of CHF, COPD not on home oxygen, and hyperlipidemia presents with complaints of weakness. Of note patient reports she was recently released from [facility] where she was admitted for hyponatremia which at that time was believed to be secondary to her Lasix use. Reports she was sent to the ER by Dr. Williamson due to the low sodium that he had after drawing labs in his office, and also wanted the patient to get a CT scan of the chest done and biopsy of a lung mass that he had found on previous investigation. States during her follow-up appointments after discharge her sodium continued to decline on further lab work testing in the outpatient setting and yesterday had a reading of 120 for her sodium. Reports she has had some mild weakness in the last day but denies any other symptoms. Reports she decided come to the ER for further evaluation and have her sodium checked. States she was sent home on urea sodium 30 mg twice daily however her insurance did not cover this medication and was taking smaller doses to try to stretch out the medication. Subjective: 11/02/2024: Patient seen at bedside. No significant overnight events. Patient is disgruntled that she was had to be woken up several times for blood draws and was unable to get good rest and is frustrated that her sodium is not increasing faster. Otherwise no complaints at this time. 11/03/2024. Patient is sitting on side of the bed. Awake alert and oriented. On room air. Able to tolerate oral diet. Denied any complaints of dizziness or lightheadedness. Patient states that she feels tired. Afebrile. No other acute overnight issues. Pertinent positives and negatives discussed above, a complete review of systems was preformed and all the other sytems were negative. Vitals Signs Reveiwed. GENERAL: The patient is alert and oriented x3, not in any acute distress. Well developed, well nourished. HEENT: Pupils are round and equally reacting to light. EOMI. No scleral icterus. No conjunctival pallor. Normocephalic, atraumatic. CARDIOVASCULAR: S1 and S2 present. No murmurs, rubs, or gallops. PULMONARY: Chest is clear to auscultation b/l, no wheezing or crackles. ABDOMEN: Soft, nontender, nondistended, normoactive bowel sounds. No palpable organomegaly. MUSCULOSKELETAL: No joint swelling or deformity. EXTREMITIES: No cyanosis, clubbing, trace edema bilaterally NEUROLOGICAL: Gross neurological examination did not reveal any focal deficits. SKIN: No rashes. Data Reveiwed Today: Patient Labs: WBC 3.5, hemoglobin 11, platelets 252, sodium 122, potassium 3.9, BUN 18, and creatinine 0.43. Imaging: CT chest with contrast shows right-sided infrahilar lytic soft tissue mass measuring 3.8 x 4.7 x 3.8 cm Assesment and Plan: #Hyponatremia: Euvolemic, potentially SIADH in the setting of potential malignancy secondary to lung mass. Versus reset osmostat versus secondary adrenal insufficiency - Initially presented with a sodium of 117, 8 hours later sodium is 120 - Monitor BMP, sodium should only increase by 8 to 10 mmol/L in the next 24 hours and should not exceed 18 mmol/L in 48 hours - Nephrology on consult, appreciate further recommendations - Fluid restrict to 1.5 liters, patient will be getting NS 50 cc/h for approximately 6 hours today in preparation for CT chest with contrast fluid to be discontinued after that and go back to fluid restriction of 1.5 L - Urea 30 g p.o. twice daily -Patient was also started on salt tablets. -Urine sodium 76 and osmolality 319, serum osmolality 259. Continue to monitor sodium level. #Hypokalemia: Improved - Potassium 3.9 - Continue to replete as needed - Monitor BMP - Nephrology consulted for electrolyte abnormalities, appreciate further recommendations #Right-sided infrahilar soft tissue mass measuring 3.8 x 4.7 x 3.8 cm - Patient denies cough, recent sick contacts, does not have a white count, and has not had a temperature since being here -Procalcitonin within normal limits -Pulmonology consulted, recommends outpatient PET scan and biopsy as an outpat ient. - Continue breathing treatment Chronic Conditions: #Benign essential hypertension: - Continue home medications #COPD: - Continue home Symbicort #CHF with unknown systolic or diastolic dysfunction - Currently holding home Lasix in the setting of hyponatremia F: Fluid restrict to 1.5 L E: None N: Heart healthy diet A: As tolerated DVT ppx: SCDs GI ppx: None CODE STATUS: Full code Dispo: Pending clinical course Jacki Mike MD PGY-[address]: To home Anticipated discharge time: Pending clinical course Objective - Vital Signs Vital signs: Vital Signs Temp 98.2 F 11/03/24 19:52 Pulse 78 11/03/24 20:00 Resp 18 11/03/24 20:00 BP 132/78 11/03/24 19:52 Pulse Ox 99 11/03/24 19:52 FiO2 Intake & Output 11/03/24 11/03/24 11/04/24 06:59 18:59 06:59 Intake Total 250 790 10 Balance 250 790 10 Intake: IV 10 10 10 Invasive Line 1 10 10 10 Oral 240 780 Other: Voiding Method Toilet Toilet Toilet # Voids 1 - Labs CBC & Chem 7: 11/03/24 06:23 11/03/24 06:23 Labs: Abnormal Lab Results - Last 24 Hours (Table) 11/03/24 11/03/24 Range/Units 06:23 06:23 WBC 4.29 L (4.50-10.00) 10*3/uL RBC 3.51 L (4.10-5.20) 10*6/uL Hgb 10.8 L (12.0-15.0) g/dL Hct 30.7 L (37.2-46.3) % MPV 9.2 L (9.5-12.2) fL Sodium 123 L (137-145) mmol/L Chloride 92 L (98-107) mmol/L BUN 20 H (7-17) mg/dL Creatinine 0.39 L (0.52-1.04) mg/dL Osmolality 259 L (275-295) mOsm/kg
[2024-11-04 08:04] LABS: Basophils # (A) 0.00 10*3/uL (0.00-0.10); Basophils % (A) 0.0 %; Eosinophils # (A) 0.02 10*3/uL (0.04-0.35); Eosinophils % (A) 0.4 %; HCT 35.2 % (37.2-46.3); HGB 12.1 g/dL (12.0-15.0); Lymphocytes # (A) 1.21 10*3/uL (0.90-5.00); Lymphocytes % (A) 26.9 %; MCH 30.6 pg (27.0-32.0); MCHC 34.4 g/dL (32.0-37.0); MCV 88.9 fL (80.0-97.0); Monocytes # (A) 0.36 10*3/uL (0.20-1.00); Monocytes % (A) 8.0 %; Neutrophils # (A) 2.90 10*3/uL (1.80-7.70); Neutrophils % (A) 64.5 %; Platelet Count 312 10*3/uL (140-440); RBC 3.96 10*6/uL (4.10-5.20); RDW 12.8 % (11.5-14.5); WBC 4.50 10*3/uL (4.50-10.00)
[2024-11-04 08:51] LABS: African American GFR (CKD) >90 (>60 ml/min/1.73 sqM); Anion Gap 10 mmol/L; Blood Urea Nitrogen 26 mg/dL (7-17); Calcium 9.8 mg/dL (8.4-10.2); Carbon Dioxide 27 mmol/L (22-30); Chloride 88 mmol/L (98-107); Glucose 113 mg/dL (74-99); Non-African American GFR(CKD) >90 (>60 ml/min/1.73 sqM); Potassium 4.7 mmol/L (3.5-5.1); Sodium 125 mmol/L (137-145)
--- NOTE | 2024-11-04 13:12 | P.PN ---
Subjective Patient is seen for follow-up for hyponatremia. Started on sodium chloride tabs. Sodium has improved to 125 however blood pressures on the higher side and patient has edema in her legs. No complaints of shortness of breath Maintained on urea but not covered as outpatient. Objective - Vital Signs Vital signs: Vital Signs Temp 98.2 F 11/04/24 08:55 Pulse 75 11/04/24 08:55 Resp 20 11/04/24 08:55 BP 149/84 11/04/24 08:55 Pulse Ox 97 11/04/24 08:55 FiO2 Intake & Output 11/03/24 11/04/24 11/04/24 18:59 06:59 18:59 Intake Total 790 10 Balance 790 10 Intake: IV 10 10 Invasive Line 1 10 10 Oral 780 Other: Voiding Method Toilet Toilet Toilet # Voids 1 1 # Bowel Movements 1 - Exam Patient is awake, comfortable, no acute distress Alert oriented x 3 Examination of the heart S1 and S2 Examination of the lungs bilateral breath sounds are heard Abdomen is soft nontender Examination of lower extremities shows 1+ edema bilaterally ENDODONTIC ASSISTANT exam grossly intact - Labs CBC & Chem 7: 11/04/24 07:42 11/04/24 07:42 Labs: Abnormal Lab Results - Last 24 Hours (Table) 11/04/24 11/04/24 Range/Units 07:42 07:42 RBC 3.96 L (4.10-5.20) 10*6/uL Hct 35.2 L (37.2-46.3) % MPV 9.4 L (9.5-12.2) fL Eosinophils # 0.02 L (0.04-0.35) 10*3/uL Sodium 125 L (137-145) mmol/L Chloride 88 L (98-107) mmol/L BUN 26 H (7-17) mg/dL Creatinine 0.43 L (0.52-1.04) mg/dL Glucose 113 H (74-99) mg/dL Assessment and Plan Assessment: 1. Hyponatremia euvolemic on initial admission. Sodium improved initially with saline but eventually worsened and therefore saline was discontinued. Currently maintained on sodium chloride tabs and has received Lasix. Currently hypervolemic. Possible underlying SIADH. Patient has a lung mass which needs to be biopsied. 2. History of CHF, ejection fraction not known 3. Morbid obesity 4. Hypertension maintained on JAYDON inhibitors Plan: Continue urea DC sodium chloride tabs due to hypervolemia Continue with fluid restriction Add demeclocycline as urea is not covered as outpatient. Patient will follow-up as outpatient locally Repeat labs in a.m.
--- NOTE | 2024-11-04 14:33 | P.PN ---
Subjective Progress Note Date: 11/04/24 Principal diagnosis: Lung mass. This is a 64-year-old female patient with a known history of congestive heart failure, hyperlipidemia, chronic obstructive pulmonary disease with chronic and ongoing tobacco dependence of 50 years, daily alcohol use. She also has a recent history of a right sided infrahilar soft tissue mass measuring 3.8 x 4.7 x 3.8 cm with postobstructive volume loss. Right hilar lymph node measuring 1.6 cm. She was following with Dr. Bradshaw in this regard and planning for a biopsy and a PET scan in the outpatient setting. She was recently in [facility] for 1 week for hyponatremia, as low as 104 according to the patient. She was discharged home on Urea but was not taking the recommended dosing due to cost. She presented here to the emergency room 10/31/2024 for follow-up blood work and her sodium was 117. She is seen today consult Tatian regarding the lung mass. She is currently sitting up at the bedside. Awake and alert in no acute distress. Maintaining O2 saturations up to 100% on room air oxygen. She is afebrile. Hemodynamically stable. Denies any shortness of breath, cough or congestion. No hemoptysis. White count 4.2. Hemoglobin 10.8. Platelets 250. Sodium 123. Potassium 3.9. Bicarb 25. BUN 20. Creatinine 0.39. Glucose 94. Urine osmolality 319. Urine random sodium 76. Procalcitonin negative at 0.10. She is receiving sodium chloride tablets 1 g twice daily and urea 30 g twice daily. Progress note dated November 04, 2024. 64-year-old female with history of CHF, hyperlipidemia, COPD, and chronic and ongoing tobacco dependence. She has been smoking for 50 years. Recently, the patient was found to have a mass, in her right chest, measuring 3.8 x 4.7 x 3.8 cm, with postobstructive volume loss. In addition, she has an enlarged right perihilar lymph node. The patient was to see my partner, for possible robotic bronchoscopy. The patient was previously admitted, at an outside hospital for hyponatremia. Her sodium was apparently at 104. Currently, she is seen in room 375. She is on room air. She is not receiving any IV fluids. In my opinion, the patient should be discharged, unless her low sodium is keeping her in the hospital, the patient would benefit from an outpatient PET scan, and then to follow-up with my partner, for consideration of a procedure. Current laboratory data includes a sodium of 125, potassium 4.7, chloride 88, CO2 27, BUN 26, creatinine 0.43. White count is 4.5, hemoglobin 12.1, hematocrit 35.2, with a platelet count of 312,000. Objective - Vital Signs Vital signs: Vital Signs Temp 98.2 F 11/04/24 08:55 Pulse 75 11/04/24 08:55 Resp 20 11/04/24 08:55 BP 149/84 11/04/24 08:55 Pulse Ox 97 11/04/24 08:55 FiO2 Intake & Output 11/03/24 11/04/24 11/04/24 18:59 06:59 18:59 Intake Total 790 10 180 Balance 790 10 180 Intake: IV 10 10 Invasive Line 1 10 10 Oral 780 180 Other: Voiding Method Toilet Toilet Toilet # Voids 1 1 # Bowel Movements 1 - Exam No acute distress, oriented 3. HEENT examination is grossly unremarkable. Mucous membranes are moist. No oral lesions. Neck supple. Full range of motion. No adenopathy thyromegaly or neck vein d istention. Cardiovascular examination reveals regular rhythm rate. S1-S2 normal. No S3 or S4. No discernible murmur noted. Lungs reveal clear breath sounds. Breath sounds are equal bilaterally. No adventitious lung sounds including wheezes rhonchi or crackles. Abdomen soft bowel sounds are heard. No masses or tenderness. Extremities are intact. No cyanosis clubbing or edema. Skin is without rash or lesion. Neurologic examination is brief but nonfocal. - Labs CBC & Chem 7: 11/04/24 07:42 11/04/24 07:42 Labs: Abnormal Lab Results - Last 24 Hours (Table) 11/04/24 11/04/24 Range/Units 07:42 07:42 RBC 3.96 L (4.10-5.20) 10*6/uL Hct 35.2 L (37.2-46.3) % MPV 9.4 L (9.5-12.2) fL Eosinophils # 0.02 L (0.04-0.35) 10*3/uL Sodium 125 L (137-145) mmol/L Chloride 88 L (98-107) mmol/L BUN 26 H (7-17) mg/dL Creatinine 0.43 L (0.52-1.04) mg/dL Glucose 113 H (74-99) mg/dL Assessment and Plan Assessment: Hyponatremia, possible underlying SIADH. Recent admission for hyponatremia at [facility] x 1 week. Right sided infrahilar soft tissue mass measuring 3.8 x 4.7 x 3.8 cm with postobstructive volume loss. Right hilar lymph node noted measuring 1.6 cm. Chronic and ongoing tobacco dependence of 50 years. Probable COPD. History of congestive heart failure. Daily alcohol use. Hypertension. Morbid obesity. Obstructive sleep apnea maintained on CPAP. Plan: Plan dated November 04, 2024. The patient is seen today in room 375. The patient was sitting upright in bed, she is on room air. No IV fluids. Her sodium today was 125. The patient would benefit from an outpatient PET scan, and follow-up with my partner for consideration of robotic bronchoscopy. My partner is currently out of the country. No procedure will be done, in the near future, and the patient needs an outpatient PET scan anyway, which should be done as soon as possible. We will continue to follow make recommendations along the way. We counseled her about the importance of smoking cessation. Labs, x-rays, and all medications are reviewed. Dictation was produced using [employer] software. Please excuse any grammatical, word or spelling errors. Time with Patient: Less than 30
[2024-11-04] MEDS: FUROSEMIDE 10 MG/ML 4 ML VIAL IV STA (15:16)
[2024-11-04] MEDS: DEMECLOCYCLINE 150 MG TAB PO SCH (15:16)
--- NOTE | 2024-11-04 17:26 | P.PN ---
Subjective Progress Note Date: 11/04/24 History of present illness; 64-year-old female with a past medical history of CHF, COPD not on home oxygen, currently on Room air, 97%, and hyperlipidemia. States during her follow-up appointments after discharge her sodium continued to decline. Reports she has had some mild weakness in the last day but denies any other symptoms. States she was sent home on urea sodium 30 mg twice daily however her insurance did not cover this medication and was taking smaller doses to try to stretch out the medication. Patient needs PET scan and biopsy, sodium needs to be above 128. Discussed with patient about medication compliance to continue correcting sodium for follow-up appointments. Subjective: 11/02/2024: Patient seen at bedside. No significant overnight events. Patient is disgruntled that she was had to be woken up several times for blood draws and was unable to get good rest and is frustrated that her sodium is not increasing faster. Otherwise no complaints at this time. 11/03/2024. Patient is sitting on side of the bed. Awake alert and oriented. On room air. Able to tolerate oral diet. Denied any complaints of dizziness or lightheadedness. Patient states that she feels tired. Afebrile. No other acute overnight issues. Discussed with patient to schedule PET scan. 11/04/2024: Patient sitting in bed no alert and oriented. Patient on room air, patient has been on fluid restriction 1.5 L. Patient patient has no complaints at this time. Sodium uptrending 123 > 125 Pertinent positives and negatives discussed above, a complete review of systems was preformed and all the other sytems were negative. Vitals Signs Reviewed. GENERAL: The patient is alert and oriented x3, not in any acute distress. HEENT: EOMI. No scleral icterus. No conjunctival pallor. CARDIOVASCULAR: S1 and S2 present. No murmurs, rubs, or gallops. PULMONARY: Chest is clear to auscultation b/l, no wheezing or crackles. ABDOMEN: Soft, nontender, nondistended, normoactive bowel sounds. EXTREMITIES: No cyanosis, clubbing, trace edema bilaterally NEUROLOGICAL: Gross neurological examination did not reveal any focal deficits. SKIN: No rashes. Data Reviewed Today: Patient Labs: WBC 4.5, hemoglobin 12.1, platelets 312, sodium 123 > 125, potassium 4.7, BUN 26, and creatinine 0.43. Assessment and Plan: #Hyponatremia: Euvolemic, potentially SIADH in the setting of potential malignancy secondary to lung mass. -Sodium 125 today, 123 yesterday - Monitor BMP, sodium should only increase by 8 to 10 mmol/L in the next 24 hours and should not exceed 18 mmol/L in 48 hours - Nephrology on consult, appreciate further recommendations - Fluid restrict to 1.5 liters - Urea 30 g p.o. twice daily -Patient was also started on salt tablets. -Urine sodium 72 and osmolality 259, serum osmolality 689 continue to monitor sodium level. #Hypokalemia: Improved - Potassium 4.7 - Continue to replete as needed - Monitor BMP - Nephrology consulted for electrolyte abnormalities, appreciate further rec ommendations #Right-sided infrahilar soft tissue mass measuring 3.8 x 4.7 x 3.8 cm - Patient denies cough, recent sick contacts, does not have a white count, and has not had a temperature since being here -Procalcitonin within normal limits -Pulmonology consulted, recommends outpatient PET scan and biopsy as an outpatient once sodium is above 128 - Continue breathing treatment Chronic Conditions: #Benign essential hypertension: - Continue home medications - Urea and salt tablets increased blood pressure, continue to monitor #COPD: - Continue home Symbicort #CHF with unknown systolic or diastolic dysfunction - Currently holding home Lasix in the setting of hyponatremia F: Fluid restrict to 1.5 L DVT ppx: SCDs CODE STATUS: Full code Dispo: Pending clinical course. Aaron Cho MD PGY-[address] discharge [address]: Home Anticipated discharge time: Pending clinical course Objective - Vital Signs Vital signs: Vital Signs Temp 97.9 F 11/04/24 15:37 Pulse 74 11/04/24 16:53 Resp 20 11/04/24 16:53 BP 133/83 11/04/24 16:53 Pulse Ox 97 11/04/24 16:53 FiO2 Intake & Output 11/03/24 11/04/24 11/04/24 18:59 06:59 18:59 Intake Total 790 10 720 Balance 790 10 720 Intake: IV 10 10 Invasive Line 1 10 10 Oral 780 720 Other: Voiding Method Toilet Toilet Toilet # Voids 1 1 # Bowel Movements 1 - Labs CBC & Chem 7: 11/04/24 07:42 11/06/24 06:00 Labs: Abnormal Lab Results - Last 24 Hours (Table) 11/04/24 11/04/24 Range/Units 07:42 07:42 RBC 3.96 L (4.10-5.20) 10*6/uL Hct 35.2 L (37.2-46.3) % MPV 9.4 L (9.5-12.2) fL Eosinophils # 0.02 L (0.04-0.35) 10*3/uL Sodium 125 L (137-145) mmol/L Chloride 88 L (98-107) mmol/L BUN 26 H (7-17) mg/dL Creatinine 0.43 L (0.52-1.04) mg/dL Glucose 113 H (74-99) mg/dL Assessment and Plan Assessment: Attestation Attestation/ Relocation Specialist Note: Attestation to Progress Note, Participation (I saw and evaluated the patient with the Resident, and I reviewed and discussed the patient with the Resident and agree with the Resident's findings and plans as documented above., management reviewed and discussed), I agree with findings & plan, Provider Signature (INDIO HESTER, RAYMOND Robison Time with Patient: Greater than 30
--- NOTE | 2024-11-05 15:07 | P.PN ---
Subjective Progress Note Date: 11/05/24 64-year-old female with a past medical history of CHF, COPD not on home oxygen, currently on Room air, 97%, and hyperlipidemia. States during her follow-up appointments after discharge her sodium continued to decline. Reports she has had some mild weakness in the last day but denies any other symptoms. States she was sent home on urea sodium 30 mg twice daily however her insurance did not cover this medication and was taking smaller doses to try to stretch out the medication. Patient needs PET scan and biopsy, sodium needs to be above 128. Discussed with patient about medication compliance to continue correcting sodium for follow-up appointments. Subjective: 11/02/2024: Patient seen at bedside. No significant overnight events. Patient is disgruntled that she was had to be woken up several times for blood draws and was unable to get good rest and is frustrated that her sodium is not increasing faster. Otherwise no complaints at this time. 11/03/2024. Patient is sitting on side of the bed. Awake alert and oriented. On room air. Able to tolerate oral diet. Denied any complaints of dizziness or lightheadedness. Patient states that she feels tired. Afebrile. No other acute overnight issues. Discussed with patient to schedule PET scan. 11/04/2024: Patient sitting in bed no alert and oriented. Patient on room air, patient has been on fluid restriction 1.5 L. Patient patient has no complaints at this time. Sodium uptrending 123 > 125 11/05. Patient seen examined. Denies any chest pain or shortness of breath. Sodium this morning is 128 REVIEW OF SYSTEMS: CONSTITUTIONAL: No fever, no malaise,. CARDIOVASCULAR: No chest pain, no palpitations, no syncope. PULMONARY: No shortness of breath, no cough, GASTROINTESTINAL: No diarrhea, no nausea, no vomiting, no abdominal pain. NEUROLOGICAL: No headaches, no weakness, PHYSICAL EXAMINATION: GENERAL: The patient is alert and oriented x3, not in any acute distress. Well developed, well nourished. HEENT: Pupils are round and equally reacting to light. EOMI. No scleral icterus. No conjunctival pallor. Normocephalic, atraumatic. No pharyngeal erythema. No thyromegaly. CARDIOVASCULAR: S1 and S2 present. No murmurs, rubs, or gallops. PULMONARY: Chest is clear to auscultation, no wheezing or crackles. ABDOMEN: Soft, nontender, nondistended, normoactive bowel sounds. No palpable organomegaly. MUSCULOSKELETAL: No joint swelling or deformity. EXTREMITIES: No cyanosis, clubbing, or pedal edema. NEUROLOGICAL: Gross neurological examination did not reveal any focal deficits. SKIN: No rashes. Assessment and plan #Hyponatremia: Euvolemic, potentially SIADH in the setting of potential malignancy secondary to lung mass. Continue fluid restriction Continue urea and salt tablet - Nephrology on consult, appreciate further recommendations #Hypokalemia: Monitor BMP #Right-sided infrahilar soft tissue mass measuring 3.8 x 4.7 x 3.8 cm -Pulmonology consulted, recommends outpatient PET scan and biopsy as an outpatient once sodium is above 128 - Continue breathing treatment Chronic Conditions: #Benign essential hypertension: - Continue home medications #COPD: - Continue home Symbicort #CHF with unknown systolic or diastolic dysfunction Labs and medication were reviewed.. Continue same treatment. Continue with symptomatic treatment. Resume home medication. Monitor labs and vitals. DVT and GI prophylaxis. Further recommendations as per clinical course of the patient Dictation was produced using [employer] dictation software. please excuse any grammatical, word or spelling errors. Objective - Vital Signs Vital signs: Vital Signs Temp 98.6 F 11/05/24 12:28 Pulse 69 11/05/24 12:28 Resp 20 11/05/24 12:28 BP 123/75 11/05/24 12:28 Pulse Ox 96 11/05/24 12:28 FiO2 Intake & Output 11/04/24 11/05/24 11/05/24 18:59 06:59 18:59 Intake Total 1260 540 Balance 1260 540 Intake: Oral 1260 540 Other: Voiding Method Toilet Toilet Toilet # Voids 1 1 # Bowel Movements 1 0 - Labs CBC & Chem 7: 11/04/24 07:42 11/05/24 10:33 Labs: Abnormal Lab Results - Last 24 Hours (Table) 11/05/24 Range/Units 10:33 Sodium 128 L (137-145) mmol/L
[2024-11-05] MEDS: FUROSEMIDE 40 MG TAB PO STA (15:42)
--- NOTE | 2024-11-05 18:13 | P.PN ---
Subjective Patient is seen for follow-up for hyponatremia. Currently maintained on urea. Sodium chloride tabs were discontinued yesterday due to hypervolemia. Status post IV Lasix x 1 yesterday. No complaints of shortness of breath Sodium has improved to 128 today. Maintained on urea but not covered as outpatient. Objective - Vital Signs Vital signs: Vital Signs Temp 98.6 F 11/05/24 12:28 Pulse 69 11/05/24 12:28 Resp 20 11/05/24 12:28 BP 123/75 11/05/24 12:28 Pulse Ox 96 11/05/24 12:28 FiO2 Intake & Output 11/04/24 11/05/24 11/05/24 18:59 06:59 18:59 Intake Total 1260 540 Balance 1260 540 Intake: Oral 1260 540 Other: Voiding Method Toilet Toilet Toilet # Voids 1 1 # Bowel Movements 1 0 - Exam Patient is awake, comfortable, no acute distress Alert oriented x 3 Examination of the heart S1 and S2 Examination of the lungs bilateral breath sounds are heard Abdomen is soft nontender Examination of lower extremities shows trace edema bilaterally 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 Hyponatremia euvolemic on initial admission. Sodium improved initially with saline but eventually worsened and therefore saline was discontinued. Patient was also maintained on sodium chloride tabs which were discontinued yesterday due to hypervolemia. Status post IV Lasix for hypervolemia. Possible underlying SIADH. Patient has a lung mass which needs to be biopsied. 2. History of CHF, ejection fraction not known 3. Morbid obesity 4. Hypertension maintained on JAYDON inhibitors Plan: Continue urea Continue off of sodium chloride tabs Continue with fluid restriction Added demeclocycline as urea is not covered as outpatient. Patient will follow-up as outpatient locally Repeat labs in a.m.
[2024-11-06 02:01] VITALS: RESP 16
[2024-11-06 06:41] LABS: African American GFR (CKD) >90 (>60 ml/min/1.73 sqM); Anion Gap 12 mmol/L; Blood Urea Nitrogen 31 mg/dL (7-17); Calcium 9.7 mg/dL (8.4-10.2); Carbon Dioxide 21 mmol/L (22-30); Chloride 97 mmol/L (98-107); Glucose 92 mg/dL (74-99); Non-African American GFR(CKD) >90 (>60 ml/min/1.73 sqM); Potassium 4.4 mmol/L (3.5-5.1); Sodium 130 mmol/L (137-145)
--- NOTE | 2024-11-06 08:21 | P.PN ---
Subjective Patient is seen in follow-up for hyponatremia. Sodium level 130 this morning. Oral intake is good. Denies excessive fluid intake. Vital signs are stable. General: No acute distress. HEENT: Head exam is unremarkable. LUNGS: No audible rhonchi or wheezes. HEART: Rate and Rhythm are regular. ABDOMEN: Non-tender. EXTREMITITES: No edema. Objective - Vital Signs Vital signs: Vital Signs Temp 97.7 F 11/06/24 08:00 Pulse 70 11/06/24 08:00 Resp 16 11/06/24 08:00 BP 155/87 11/06/24 08:00 Pulse Ox 96 11/06/24 08:00 FiO2 Intake & Output 11/05/24 11/06/24 11/06/24 18:59 06:59 18:59 Intake Total 540 Balance 540 Intake: Oral 540 Other: Voiding Method Toilet Toilet # Voids 2 2 # Bowel Movements 0 - Labs CBC & Chem 7: 11/04/24 07:42 11/06/24 06:00 Labs: Abnormal Lab Results - Last 24 Hours (Table) 11/05/24 11/06/24 Range/Units 10:33 06:00 Sodium 128 L 130 L (137-145) mmol/L Chloride 97 L (98-107) mmol/L Carbon Dioxide 21 L (22-30) mmol/L BUN 31 H (7-17) mg/dL Creatinine 0.42 L (0.52-1.04) mg/dL Assessment and Plan Plan: Assessment: 1. Hyponatremia. Euvolemic on admission but then became hypervolemic. Salt tabs discontinued and has received IV Lasix this admission. Also concern for underlying SIADH from lung cancer. Sodium level 130 today. Currently on demeclocycline and urea. Urine sodium 72 and urine osmolality 689 dated November 03, 2024. TSH normal. 2. History of CHF. Unknown ejection fraction. 3. Morbid obesity. 4. Benign hypertension. 5. Lung mass. Pulmonology following. Plan for PET scan and bronchoscopy out patient. Plan: Maintain urea. Maintain fluid restriction. Maintain demeclocycline. Urea not covered outpatient. Add Lasix 40 mg once daily. Repeat BMP and magnesium level 2 to 3 days postdischarge. Follow-up outpatient 1 week postdischarge.
[2024-11-06] MEDS: FUROSEMIDE 40 MG TAB PO SCH (10:14)
[2024-11-06] MEDS: NICOTINE 21MG/24HR PATCH TRANSDERM SCH (10:48)
[2024-11-06 13:42] VITALS: BP 143/84; PULSE 98; TEMP 97.9
== END 2024-11-06 14:00 | disposition home or self-care (01) | DRG 426 ==
LOC: EC 18:58 → 3SCARD 21:18 → 5NMEDONC 11-04 15:29
PROVIDERS: ADMIT Hospitalist; ATTEND Hospitalist
DX: E22.2 Syndrome of inappropriate secretion of antidiuretic hormone (principal); E66.01 Morbid (severe) obesity due to excess calories; C34.90 Malignant neoplasm of unspecified part of unspecified bronchus or lung; R04.2 Hemoptysis; E78.5 Hyperlipidemia, unspecified; E87.6 Hypokalemia; F17.200 Nicotine dependence, unspecified, uncomplicated; G47.33 Obstructive sleep apnea (adult) (pediatric); I11.0 Hypertensive heart disease with heart failure; I50.9 Heart failure, unspecified; J44.9 Chronic obstructive pulmonary disease, unspecified; Z79.899 Other long term (current) drug therapy; Z68.41 Body mass index [BMI] 40.0-44.9, adult; Z87.01 Personal history of pneumonia (recurrent)
CPT/HCPCS: 36415; 71260; 80048; 80053; 83930; 83935; 84145; 84295; 84300; 84443; 85025; 94640; 96360; 96361; 99285